=== PATIENT | male | born 1945 | race Caucasian/White ===

== ENCOUNTER 2018-08-18 16:04 | Inpatient (IN) | payer MEDICARE, OTHER ==
[~2018-08-18] VITALS: Ht 195.6 cm; Wt 96.7 kg
[2018-08-18] MEDS ORDERED: MORPHINE SULFATE 4 MG/ML, 1ML ONE ×2 (16:21→17:22)
[2018-08-18] MEDS ORDERED: PLEASE ENTER ALLERGIES MC SCH (16:30)
[2018-08-18] MEDS ORDERED: SODIUM CHLORIDE FLUSH 10ML SYR IVF ONE (16:30)
[2018-08-18] MEDS ORDERED: SODIUM CHLORIDE 0.9% 1,000ML IV ONE (16:30)
[2018-08-18] MEDS ORDERED: ONDANSETRON 2MG/ML, 2ML IVPush ONE (16:30)
[2018-08-18] MEDS: MORPHINE SULFATE 4 MG/ML, 1ML IVPush PRN ×2 (16:35→17:42)
[2018-08-18 16:50] LABS: BASOPHILS # (AUTO) 0.11 x10^3/uL (0-0.1); BASOPHILS % (AUTO) 1 % (0-1); EOSINOPHILS # (AUTO) 0.46 x10^3/uL (0-0.4); EOSINOPHILS % (AUTO) 5 % (1-7); LYMPHOCYTES # (AUTO) 1.61 x10^3/uL (1-3.4); LYMPHOCYTES % (AUTO) 17 % (22-44); MD NO; MEAN CORPUSCULAR HEMOGLOBIN 27.4 pg (27.5-34.5); MEAN CORPUSCULAR HGB CONC 31.5 g/dL (33.2-36.2); MEAN CORPUSCULAR VOLUME 87.1 fL (81-97); MEAN PLATELET VOLUME 7.9 fL (7.4-10.4); MONOCYTES # (AUTO) 0.96 x10^3/uL (0.2-0.8); MONOCYTES % (AUTO) 10 % (2-9); NEUTROPHILS # (AUTO) 6.35 x10^3/uL (1.8-6.8); NEUTROPHILS % (AUTO) 67 % (42-75); PLATELET COUNT 268 x10^3/uL (130-400); RED BLOOD COUNT 4.11 x10^6/uL (4.38-5.82)
[2018-08-18] MEDS ORDERED: DIAZEPAM 5 MG/ML, 10ML VIAL IV ONE (17:00)
[2018-08-18] MEDS ORDERED: PLEASE ENTER HEIGHT AND WEIGHT MC SCH (17:00)
[2018-08-18] MEDS ORDERED: SODIUM CHLORIDE 0.9%, 500ML IVBOLUS ONE (17:00)
[2018-08-18 17:02] LABS: ALANINE AMINOTRANSFERASE 18 U/L (12-78); ALBUMIN 2.5 g/dL (3.4-5.0); ANION GAP 8 mmol/L (5-15); CALCIUM 8.1 mg/dL (8.5-10.1); CHLORIDE 110 mmol/L (98-107)
[2018-08-18 17:05] LABS: ALKALINE PHOSPHATASE 101 U/L (45-117); BILIRUBIN,TOTAL 0.2 mg/dL (0.2-1.0); TOTAL PROTEIN 5.9 g/dL (6.4-8.2)
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
[2018-08-18 17:14] LABS: HCT (SEDRATE) 35.8 % (39.2-51.8)
--- NOTE | 2018-08-18 17:24 | NUR ---
PT TO CT AT THIS TIME
[2018-08-18] MEDS ORDERED: OMNIPAQUE 350 MG/ML, 100ML BOTTLE ONE (17:42)
--- NOTE | 2018-08-18 17:42 | NUR ---
PT RETURNED FROM CT CO INCREASING PAIN MEDICATED PER ORDERS
[2018-08-18] MEDS ORDERED: KETAMINE 100 MG/ML, 5ML IV ONE (17:55)
[2018-08-18] MEDS ORDERED: KETAMINE 10 MG/ML, 20ML ONE (17:58)
[2018-08-18] MEDS ORDERED: DIAZEPAM 5 MG/ML, 2ML IV ONE (18:00)
--- NOTE | 2018-08-18 18:10 | NUR ---
KETAMINE GIVEN AT 1806 50 MG
--- NOTE | 2018-08-18 18:16 | NUR ---
POST KETAMINE PT RESPONDING WELL TO VERBAL STIMULI BP INCREASED TO 126/67 PLACED ON 3 LPM NC O2 SATS TO 94%
--- NOTE | 2018-08-18 18:57 | NUR ---
assumed care for this PT.
[2018-08-18] MEDS ORDERED: SODIUM CHLORIDE FLUSH 10ML SYR IVF PRN (19:00)
--- NOTE | 2018-08-18 19:28 | NUR ---
REPORT CALLED TO FLOOR PT READY TO GO. PT REQUESTING FOOD.
[2018-08-18] MEDS ORDERED: ONDANSETRON 2MG/ML, 2ML IVPush PRN (19:30)
[2018-08-18] MEDS ORDERED: ACETAMINOPHEN 325 MG TABLET PO PRN (19:30)
[2018-08-18] MEDS: SODIUM CHLORIDE 0.9% 1,000 ML IV SCH (20:14)
[2018-08-18] MEDS: BACLOFEN 10 MG TABLET PO PRN (20:49)
[2018-08-18] MEDS: HYDROmorphone 2 MG/ML, 1ML IVPush PRN ×3 (20:50→22:01)
[2018-08-18 20:53] VITALS: BP 101/63
[2018-08-18 21:14] VITALS: BP 124/67
[2018-08-19 00:30] VITALS: BP 135/78
[2018-08-19] MEDS ORDERED: OMEP-110 PO (01:19)
[2018-08-19] MEDS ORDERED: MULT-658 PO (01:19)
[2018-08-19] MEDS ORDERED: DOXA8TAB63 PO (01:19)
[2018-08-19] MEDS ORDERED: DULO30CA2 PO (01:19)
[2018-08-19] MEDS ORDERED: RIVA20TA PO (01:19)
[2018-08-19] MEDS ORDERED: HYDR-3245 PO (01:19)
[2018-08-19] MEDS ORDERED: AMIT75TA PO (01:19)
[2018-08-19] MEDS ORDERED: TIZA4TAB PO (01:19)
[2018-08-19] MEDS ORDERED: MORP15TA PO (01:19)
[2018-08-19] MEDS ORDERED: PARO40TA3 PO (01:19)
[2018-08-19] MEDS ORDERED: CLOB50SO2 TP (01:19)
[2018-08-19] MEDS ORDERED: PREG150C PO (01:19)
[2018-08-19] MEDS ORDERED: FOSI20TA7 PO (01:19)
[2018-08-19] MEDS ORDERED: AMLO-150 PO (01:19)
[2018-08-19] MEDS ORDERED: MORP15TA3 PO (01:19)
[2018-08-19] MEDS ORDERED: MENT71OI TP (01:19)
[2018-08-19] MEDS ORDERED: SIMV20TA3 PO (01:19)
[2018-08-19 03:38] LABS: CULTURE INDICATED? YES; MICROSCOPIC INDICATED
[2018-08-19] MEDS: SODIUM CHLORIDE 0.9% 1,000 ML IV SCH ×2 (05:03→15:57)
[2018-08-19] MEDS: HYDROmorphone 2 MG/ML, 1ML IVPush PRN ×6 (05:04→23:17)
[2018-08-19] MEDS: BACLOFEN 10 MG TABLET PO PRN ×3 (05:04→23:55)
[2018-08-19 05:05] VITALS: BP 156/77
[2018-08-19] MEDS: RIVAROXABAN 20 MG TABLET PO SCH (05:38)
[2018-08-19 06:44] LABS: BASOPHILS # (AUTO) 0.08 x10^3/uL (0-0.1); BASOPHILS % (AUTO) 1 % (0-1); EOSINOPHILS # (AUTO) 0.48 x10^3/uL (0-0.4); EOSINOPHILS % (AUTO) 8 % (1-7); LYMPHOCYTES # (AUTO) 1.54 x10^3/uL (1-3.4); LYMPHOCYTES % (AUTO) 25 % (22-44); MD NO; MEAN CORPUSCULAR HEMOGLOBIN 27.4 pg (27.5-34.5); MEAN CORPUSCULAR HGB CONC 31.9 g/dL (33.2-36.2); MEAN CORPUSCULAR VOLUME 85.7 fL (81-97); MEAN PLATELET VOLUME 7.7 fL (7.4-10.4); MONOCYTES # (AUTO) 0.59 x10^3/uL (0.2-0.8); MONOCYTES % (AUTO) 10 % (2-9); NEUTROPHILS # (AUTO) 3.45 x10^3/uL (1.8-6.8); NEUTROPHILS % (AUTO) 56 % (42-75); PLATELET COUNT 244 x10^3/uL (130-400); RED BLOOD COUNT 4.65 x10^6/uL (4.38-5.82); RED CELL DISTRIBUTION WIDTH 14.8 % (9.4-14.8)
[2018-08-19 06:50] LABS: ANION GAP 7 mmol/L (5-15); CALCIUM 8.5 mg/dL (8.5-10.1); CHLORIDE 110 mmol/L (98-107); CREATININE 0.81 mg/dL (0.7-1.3)
[2018-08-19 07:29] VITALS: BP 162/83
[2018-08-19] MEDS ORDERED: CEFTRIAXONE PMX 1GM/50ML 50 ML IV SCH (09:00)
[2018-08-19 14:30] VITALS: BP 146/84
[2018-08-19] MEDS ORDERED: LORazepam 2 MG/ML, 1ML IVPush PRN (17:00)
[2018-08-19] MEDS ORDERED: GADOBUTROL 10 MMOL/10 ML PFS ONE (18:49)
[2018-08-19] MEDS ORDERED: SODIUM CHLORIDE 0.9% 1,000 ML IV SCH (19:05)
[2018-08-19 20:00] VITALS: BP 167/71
[2018-08-20 01:56] VITALS: BP 164/88
[2018-08-20] MEDS: HYDROmorphone 2 MG/ML, 1ML IVPush PRN ×6 (02:32→23:38)
[2018-08-20] MEDS ORDERED: DIPHENHYDRAMINE 25 MG CAPSULE PO PRN (04:00)
[2018-08-20] MEDS: OXYcodone/APAP 5/325MG TABLET PO PRN ×4 (04:08→22:12)
[2018-08-20] MEDS: RIVAROXABAN 20 MG TABLET PO SCH (05:19)
[2018-08-20 05:28] LABS: BASOPHILS # (AUTO) 0.05 x10^3/uL (0-0.1); BASOPHILS % (AUTO) 1 % (0-1); EOSINOPHILS # (AUTO) 0.37 x10^3/uL (0-0.4); EOSINOPHILS % (AUTO) 5 % (1-7); LYMPHOCYTES # (AUTO) 0.97 x10^3/uL (1-3.4); LYMPHOCYTES % (AUTO) 14 % (22-44); MD NO; MEAN CORPUSCULAR HEMOGLOBIN 27.4 pg (27.5-34.5); MEAN CORPUSCULAR HGB CONC 31.8 g/dL (33.2-36.2); MEAN CORPUSCULAR VOLUME 86.1 fL (81-97); MEAN PLATELET VOLUME 7.9 fL (7.4-10.4); MONOCYTES # (AUTO) 0.54 x10^3/uL (0.2-0.8); MONOCYTES % (AUTO) 8 % (2-9); NEUTROPHILS % (AUTO) 73 % (42-75); PLATELET COUNT 287 x10^3/uL (130-400); RED BLOOD COUNT 4.49 x10^6/uL (4.38-5.82); RED CELL DISTRIBUTION WIDTH 14.9 % (9.4-14.8)
[2018-08-20 05:31] LABS: ANION GAP 4 mmol/L (5-15); CALCIUM 8.4 mg/dL (8.5-10.1); CHLORIDE 108 mmol/L (98-107)
[2018-08-20 05:34] LABS: CREATININE 0.67 mg/dL (0.7-1.3)
[2018-08-20] MEDS: BACLOFEN 10 MG TABLET PO PRN ×2 (07:56→22:12)
[2018-08-20 07:58] VITALS: BP 190/101
[2018-08-20] MEDS: ZINC OXIDE TP SCH ×2 (09:30→21:00)
[2018-08-20] MEDS ORDERED: CLOBETASOL PROPIONATE CRM 0.05%, 15GM TP PRN (09:30)
[2018-08-20] MEDS ORDERED: methylPREDNISolone SOD SUCC 125 MG/2 ML IV ONE (09:30)
[2018-08-20] MEDS: MENTHOL TP SCH ×2 (09:30→21:00)
[2018-08-20 11:36] VITALS: BP 154/82
[2018-08-20] MEDS: CIPROFLOXACIN 250 MG TABLET PO SCH ×2 (12:02→23:39)
[2018-08-20] MEDS: PREGABALIN 150 MG CAPSULE PO SCH ×2 (12:03→20:33)
[2018-08-20] MEDS: FOSINOPRIL 20MG TABLET PO SCH (12:03)
[2018-08-20] MEDS: PAROXETINE 20 MG TABLET PO SCH (12:03)
[2018-08-20] MEDS: TIZANIDINE 4MG TABLET PO SCH ×3 (12:03→20:33)
[2018-08-20] MEDS: DULOXETINE 30 MG CAPSULE.DR PO SCH ×2 (12:04→23:39)
[2018-08-20] MEDS: AMLODIPINE 5 MG TABLET PO SCH (12:04)
[2018-08-20] MEDS: MULTIVITAMIN 1 TABLET PO SCH (12:04)
[2018-08-20] MEDS: OMEPRAZOLE 20 MG CAPSULE.DR PO SCH (12:04)
[2018-08-20] MEDS: FAMOTIDINE 20 MG TABLET PO SCH ×2 (12:35→20:32)
[2018-08-20] MEDS: DIPHENHYDRAMINE 25 MG CAPSULE PO SCH ×2 (14:50→20:32)
[2018-08-20 19:46] VITALS: BP_SYST 191; BP_SYST 203; BP_DIAS 112; BP_DIAS 114
[2018-08-20] MEDS: SIMVASTATIN 20 MG TABLET PO SCH (20:32)
[2018-08-20] MEDS: AMITRIPTYLINE 75 MG TABLET PO SCH (20:32)
[2018-08-20] MEDS: DOXAZOSIN 2MG TABLET PO SCH (20:34)
[2018-08-20] MEDS ORDERED: hydrALAzine 20 MG/ML, 1ML IV PRN (22:30)
[2018-08-21 00:23] VITALS: BP 153/82
[2018-08-21] MEDS ORDERED: SIMETHICONE 80 MG CHEW TAB PO PRN (00:30)
[2018-08-21] MEDS: HYDROmorphone 2 MG/ML, 1ML IVPush PRN (04:12)
[2018-08-21] MEDS: DIPHENHYDRAMINE 25 MG CAPSULE PO SCH ×2 (04:12→08:14)
[2018-08-21] MEDS: RIVAROXABAN 20 MG TABLET PO SCH (05:11)
[2018-08-21 07:50] VITALS: BP 125/76
[2018-08-21] MEDS: FAMOTIDINE 20 MG TABLET PO SCH (08:13)
[2018-08-21] MEDS: OMEPRAZOLE 20 MG CAPSULE.DR PO SCH (08:13)
[2018-08-21] MEDS: TIZANIDINE 4MG TABLET PO SCH ×3 (08:13→20:59)
[2018-08-21] MEDS: PREGABALIN 150 MG CAPSULE PO SCH ×2 (08:13→20:59)
[2018-08-21] MEDS: AMLODIPINE 5 MG TABLET PO SCH (08:13)
[2018-08-21] MEDS: FOSINOPRIL 20MG TABLET PO SCH (08:13)
[2018-08-21] MEDS: MULTIVITAMIN 1 TABLET PO SCH (08:13)
[2018-08-21] MEDS: ZINC OXIDE TP SCH ×2 (08:14→20:44)
[2018-08-21] MEDS: MENTHOL TP SCH ×2 (08:14→20:44)
[2018-08-21] MEDS: PAROXETINE 20 MG TABLET PO SCH (08:14)
[2018-08-21] MEDS: OXYcodone/APAP 5/325MG TABLET PO PRN ×2 (09:31→14:34)
[2018-08-21] MEDS: CIPROFLOXACIN 250 MG TABLET PO SCH (10:54)
[2018-08-21] MEDS: DULOXETINE 30 MG CAPSULE.DR PO SCH ×2 (10:55→23:47)
[2018-08-21] MEDS: BACLOFEN 10 MG TABLET PO PRN (10:55)
[2018-08-21] MEDS ORDERED: HYDROmorphone 2 MG/ML, 1ML IVPush PRN (14:30)
[2018-08-21 14:58] VITALS: BP 113/68
[2018-08-21 20:00] VITALS: BP 130/79
[2018-08-21] MEDS: AMITRIPTYLINE 75 MG TABLET PO SCH (20:59)
[2018-08-21] MEDS: SIMVASTATIN 20 MG TABLET PO SCH (20:59)
[2018-08-21] MEDS: DOXAZOSIN 2MG TABLET PO SCH (21:00)
[2018-08-22 03:18] VITALS: BP 147/84
[2018-08-22] MEDS: RIVAROXABAN 20 MG TABLET PO SCH (05:28)
[2018-08-22 07:48] VITALS: BP 139/87
[2018-08-22] MEDS: AMLODIPINE 5 MG TABLET PO SCH (08:53)
[2018-08-22] MEDS: PAROXETINE 20 MG TABLET PO SCH (08:53)
[2018-08-22] MEDS: TIZANIDINE 4MG TABLET PO SCH ×3 (08:53→21:10)
[2018-08-22] MEDS: DULOXETINE 30 MG CAPSULE.DR PO SCH ×2 (08:53→20:59)
[2018-08-22] MEDS: MULTIVITAMIN 1 TABLET PO SCH (08:53)
[2018-08-22] MEDS: FOSINOPRIL 20MG TABLET PO SCH (08:53)
[2018-08-22] MEDS: PREGABALIN 150 MG CAPSULE PO SCH ×2 (08:53→20:58)
[2018-08-22] MEDS: OMEPRAZOLE 20 MG CAPSULE.DR PO SCH (08:53)
[2018-08-22] MEDS: MENTHOL TP SCH ×2 (08:54→21:01)
[2018-08-22] MEDS: ZINC OXIDE TP SCH ×2 (08:54→21:01)
[2018-08-22 16:37] VITALS: BP 133/74
[2018-08-22] MEDS ORDERED: PREG150C PO (17:25)
[2018-08-22] MEDS ORDERED: OXYC1TAB7 PO (17:25)
[2018-08-22 20:20] VITALS: BP 109/71
[2018-08-22] MEDS: AMITRIPTYLINE 75 MG TABLET PO SCH (20:58)
[2018-08-22] MEDS: SIMVASTATIN 20 MG TABLET PO SCH (20:59)
[2018-08-22] MEDS: DOXAZOSIN 2MG TABLET PO SCH (20:59)
[2018-08-23 00:34] VITALS: BP 124/76
[2018-08-23] MEDS: RIVAROXABAN 20 MG TABLET PO SCH (05:02)
[2018-08-23 07:40] VITALS: BP 171/94
[2018-08-23] MEDS: ZINC OXIDE TP SCH (09:00)
[2018-08-23] MEDS: MENTHOL TP SCH (09:00)
[2018-08-23] MEDS: PREGABALIN 150 MG CAPSULE PO SCH (09:05)
[2018-08-23] MEDS: DULOXETINE 30 MG CAPSULE.DR PO SCH (09:06)
[2018-08-23] MEDS: AMLODIPINE 5 MG TABLET PO SCH (09:06)
[2018-08-23] MEDS: OXYcodone/APAP 5/325MG TABLET PO PRN ×2 (09:06→17:29)
[2018-08-23] MEDS: FOSINOPRIL 20MG TABLET PO SCH (09:06)
[2018-08-23] MEDS: PAROXETINE 20 MG TABLET PO SCH (09:06)
[2018-08-23] MEDS: MULTIVITAMIN 1 TABLET PO SCH (09:06)
[2018-08-23] MEDS: OMEPRAZOLE 20 MG CAPSULE.DR PO SCH (09:06)
[2018-08-23] MEDS: TIZANIDINE 4MG TABLET PO SCH ×2 (09:07→17:29)
[2018-08-23 15:45] VITALS: BP 104/68
== END 2018-08-23 18:15 | disposition home health service (06) | DRG 552 ==
LOC: ED 19:00 → EDIP 19:04 → 4WST 20:07
PROVIDERS: ADMIT Internal Medicine; ATTEND Internal Medicine
DX: M54.9 Dorsalgia, unspecified (principal); G82.20 Paraplegia, unspecified; M47.26 Other spondylosis with radiculopathy, lumbar region; G89.29 Other chronic pain; E86.0 Dehydration; I10 Essential (primary) hypertension; I95.0 Idiopathic hypotension; L29.9 Pruritus, unspecified; M40.56 Lordosis, unspecified, lumbar region; M48.04 Spinal stenosis, thoracic region; R33.8 Other retention of urine; D64.9 Anemia, unspecified; L27.0 Generalized skin eruption due to drugs and medicaments taken internally; T50.995A Adverse effect of other drugs, medicaments and biological substances, initial encounter; Y92.89 Other specified places as the place of occurrence of the external cause; Z86.711 Personal history of pulmonary embolism; Z98.1 Arthrodesis status; Z99.3 Dependence on wheelchair
CPT/HCPCS: 36415; 72132; 72158; 80048; 80053; 81001; 82533; 83605; 84145; 85025; 85651; 86140; 87040; 87077; 87086; 87186; 93005; A9585; G0378; J0696; J1170; J3360; Q9967; J0360; J2060; J2270; J2930; J7030; J7040; Q0163